=== PATIENT | male | born 1990 | race Caucasian/White ===

== ENCOUNTER 2017-01-08 16:20 | Emergency (ER) | payer MEDICAID ==
[~2017-01-08] VITALS: Ht 170.2 cm; Wt 73.6 kg
[2017-01-08 16:21] VITALS: BP 114/74
[2017-01-08] MEDS ORDERED: IBUPROFEN 200 MG TABLET PO STA (16:47)
[2017-01-08] MEDS ORDERED: IBUPROFEN 200 MG TABLET ONE (16:53)
== END 2017-01-08 17:35 | disposition home or self-care (01) ==
LOC: ED 17:15
DX: S63.652A Sprain of metacarpophalangeal joint of right middle finger, initial encounter (principal); F19.10 Other psychoactive substance abuse, uncomplicated; V29.49XA Motorcycle driver injured in collision with other motor vehicles in traffic accident, initial encounter; Y93.55 Activity, bike riding; Y99.8 Other external cause status; Y92.89 Other specified places as the place of occurrence of the external cause
CPT/HCPCS: 99284